=== PATIENT | female | born 1970 | race Caucasian/White ===

== ENCOUNTER 2016-10-11 10:32 | Day surgery (SDC) | payer OTHER ==
--- NOTE | 2016-10-11 07:57 | History and Physical Report ---
DATE OF EVALUATION: 10/11/2016. CHIEF COMPLAINT AND HISTORY OF CHIEF COMPLAINT: This patient presents with a history of intractable lumbar radiculitis. Due to the failure of all therapies , a spinal cord stimulator trial was conducted on 09/05/2016 with up to greater than 75% pain control. Due to the failure of all other therapies and the success of the trial she presents for implantation of a permanent system. PAST MEDICAL HISTORY: Asthmatic bronchitis. REVIEW OF SYSTEMS: The patient seems appropriate and in no acute distress. The remainder of the systems review shows breathing difficulties, headaches, anemia, reflux disease, degenerative arthritis, depression, difficulty sleeping. SOCIAL HISTORY: Caffeine. FAMILY HISTORY: Cancer. PAST SURGICAL HISTORY: section, gallbladder surgery, gastric bypass, uterine ablation, hysterectomy. ALLERGIES: Anti-inflammatories. MEDICATIONS ON ADMISSION: To be provided. PHYSICAL EXAMINATION: General: Height is 5 feet. Weight is 110 pounds. Vital Signs: Unavailable. HEENT: Within normal limits. Lungs: Clear. Heart: Regular rate and rhythm. Abdomen: Nontender. Musculoskeletal: Examination of the musculoskeletal system shows diffuse tenderness throughout the lumbar spine. Range of motion produces pain into the hip and moving into the left leg. Ambulation: No assistive device utilized. Neurologic: Cranial nerves are intact. IMPRESSIONS: LUMBAR RADICULITIS, ICD10 CODE M54.16 AND M54.17. PLANS: This patient is here for implantation of a permanent spinal cord stimulator. The procedure will be considered outpatient, although an overnight stay will be evaluated. All of the potential risks, side effects, and complications have been reviewed including the possibility of nerve root injury , paralysis, and failed trial. A book and CD-ROM from the adjutant general explaining the procedure, its indications, contraindications, all of the potential side effects and complications had been provided reviewed. The patient consents, understands, and wants to move forward. Akhil Saldivar D.O. Date Time JOB NUMBER: [id number] cc: Ruby Mccollum
[~2016-10-11 10:32] MED LIST: ACETAMINOPHEN 1000MG/100 ML PREMIX IV ONE; CEFAZOLIN 2 Gram 50 ML IVPB ONE; FAMOTIDINE 20MG TABLET PO ONE; MECLIZINE 25 MG TABLET PO ONE; METOCLOPRAMIDE 10 MG TABLET PO ONE
[2016-10-11] MEDS ORDERED: MIDAZOLAM HCL 2MG/2ML VIAL IV ONE (14:30)
[2016-10-11] MEDS ORDERED: LIDOCAINE 2% MDV (20MG/ML) 20ML VIAL IV ONE (14:30)
[2016-10-11] MEDS ORDERED: *PACU ONLY* KETAMINE HCL 10 MG/ML (20ML) VIAL IV ONE (14:30)
[2016-10-11] MEDS ORDERED: DEXMEDETOMIDINE HCL 200 MCG/2 ML VIAL IV ONE (14:30)
[2016-10-11] MEDS ORDERED: DEXAMETHASONE 4 MG/ML 1ML VIAL IVP ONE (14:30)
[2016-10-11] MEDS ORDERED: FENTANYL PF 100MCG/2ML VIAL IV ONE (14:30)
[2016-10-11] MEDS ORDERED: PROPOFOL 10 MG/ML VIAL IV ONE (14:30)
[2016-10-11] MEDS ORDERED: DIPHENHYDRAMINE HCL 25 MG CAPSULE PO PRN ×2 (14:46)
[2016-10-11] MEDS ORDERED: HYDROCODONE/APAP 7.5/325MG TABLET PO PRN (14:46)
[2016-10-11] MEDS ORDERED: METOCLOPRAMIDE 10 MG TABLET PO PRN (14:46)
[2016-10-11] MEDS ORDERED: SENNOSIDES/DOCUSATE SODIUM UD CAPSULE PO PRN ×2 (14:46)
[2016-10-11] MEDS ORDERED: TEMAZEPAM 15 MG CAPSULE PO PRN ×2 (14:46)
[2016-10-11] MEDS ORDERED: OXYCODONE/APAP 10MG-325MG TABLET PO PRN ×2 (14:46)
[2016-10-11] MEDS ORDERED: HYDROMORPHONE HCL 1 MG/ML CPJ IM PRN (14:46)
[2016-10-11] MEDS ORDERED: AL HYDROX/MAG HYDROX 30ML UD PO PRN (14:46)
[2016-10-11] MEDS ORDERED: METOCLOPRAMIDE HCL 10 MG/2 ML VIAL IVP PRN (14:46)
[2016-10-11] MEDS ORDERED: DIPHENHYDRAMINE HCL IV 50 MG/ML VIAL IVP PRN ×2 (14:46)
[2016-10-11] MEDS ORDERED: ACETAMINOPHEN 325 MG TAB PO PRN ×2 (14:46)
--- NOTE | 2016-10-11 15:42 | Operative Note ---
PAIN SERVICE OPERATIVE REPORT DATE OF PROCEDURE: . PREOPERATIVE DIAGNOSIS: LUMBAR RADICULITIS, ICD10 CODE M54.16 AND M54.17. PROCEDURES: 1. Fluoroscopically guided epidural access, T12-L1. Placement of spinal cord stimulator Lead 1, [employer] Infinion 16 with 16 electrodes, positioned left T7. 2. Fluoroscopically guided epidural access, T11-12, dural puncture. 3. Fluoroscopically guided epidural access T10-11. Placement of spinal cord stimulator lead 2, a [employer] Infinion 16 with 16 electrodes positioned right T7. 3. Complex programming of Lead 1 over 20 minutes followed by complex programming of Lead 2 over 20 minutes. 4. Incision, subcutaneous dissection, and anchoring of Lead 1 and Lead 2 to supraspinous fascia using a [employer] anchoring device and nonabsorbable suture. 5. Incision, subcutaneous dissection, and creation of subcutaneous pouch at the right posterior gluteal margin for placement of generator identified as a [employer] Programmable Rechargeable. 6. Tunneling between pouches and placement of external ports for Lead 1 and Lead 2 into generator pouch, each lead interfaced to bifurcate extension. Each bifurcate extension interfaced to the generator. 7. Placement of generator pouch, securing to the posterior fascia with nonabsorbable suture. Leads into pouch. 8. Closure of incisions with Vicryl to the fascia running subcuticular Vicryl for the skin. Dermabond Closure placed. 9. Epidural blood patch at L1-2, 18-gauge Tuohy with loss of resistance, 20 mL of autologous blood drawn with sterile technique, left antecubital. 10. Complex recovery room programming of the internal generator, home use, two stimulators, 20 minutes. SURGEON: Akhil Saldivar D.O. ANESTHESIA: Local sedation. ANESTHESIA PROVIDER: Alonso Tafoya CRNA. INDICATIONS: This patient presents with a history of intractable lumbar radiculitis. Due to the failure of other therapies and the success of a stimulator trial resulting in greater than 75% pain control, she is here for permanent implantation. DESCRIPTION OF PROCEDURE: Intravenous line, vital sign monitoring, intravenous sedation. Prepped and draped with sterile technique with the patient positioned on the table prone. Under imaging, the epidural interspace at T12- L1 and 11-12 was marked and infiltrated. Two separate curved-access Epimed needles with loss of resistance. At 12-1, spinal cord stimulator Lead 1, a [employer] Infinion 16 with 16 electrodes, was positioned left of midline at T7. The epidural access at T11-12, because of significant patient motion and movement, resulted in a dural puncture. The needle was removed. Epidural access at T10-11 was accomplished with a curved access needle with loss of resistance. Spinal cord stimulator Lead 2, a [employer] Infinion 16 with 16 electrodes, was positioned right of the midline at T7. Complex programming of Lead 1 over 20 minutes. Complex programming of Lead 2 over 20 minutes. This resulted in patterns of stimulation across all of the back and into the legs. The patient was questioned, and she indicated that we had all of the areas of pain. She was given the option to implant, remove, or continue to program. She opted to implant. Questions were repeated with the same response. The skin above and below the needles was infiltrated. An incision was made with subcutaneous dissection conducted to the supraspinous fascia. The needles were removed and then each lead was anchored to the supraspinous fascia with a [employer] locking anchor. At the right posterosuperior gluteal margin gluteal margin, a site picked by the patient for the generator, the skin was infiltrated, an incision was made and subcutaneous dissection was conducted to form a pouch of suitable size and depth for the generator. A tunneling tool was used to carry the leads into the generator pouch, and then each lead was interfaced to bifurcate extension. Each bifurcate extension was then interfaced to the generator. Antibiotic irrigation. Bovie for hemostasis. The generator was placed into the pouch and secured to the posterior fascia using nonabsorbable suture. The leads were placed into the pouch, and then both incisions were closed with Vicryl to the fascia and running subcuticular and Vicryl for skin. A Dermabond Closure System was used. The epidural interspace at L1-2 was marked. Using an 18-gauge Tuohy needle with loss of resistance the epidural space was accessed. Simultaneously, 20 mL of autologous blood was drawn with sterile technique, left antecubital. Using a sterile technique, the blood was placed onto the field and then an epidural blood patch was performed at this level with this blood. The needle was removed and the area was cleaned. The dressing was reinforced. She was transported to the recovery stable, flat with a pillow under the head and knees. She will stay flat for four hours and will be slowly elevated for one. When stable she will be discharged. More than likely she will be kept overnight for observation and will be discharged in the morning. DISCHARGE INSTRUCTIONS: 1. The sites will remain clean and dry. No showering or bathing in any way that would disrupt the dressings. If it happens, contact the clinic. 2. Standard medications may be resumed including an antibiotic with Levaquin 500 mg once a day for 14 days. 3. During the next five to seven days the patient will evaluate any occurrence of headache. If it happens, contact the clinic. 4. All other instructions were provided, numbers to contact, and problems given. 5. She will be seen in the office to evaluate the incisional sites. She should keep her activities low for the next five to seven days limiting bend, lift, push, and pull. Akhil Saldivar D.O. Date Time JOB NUMBER: [id number] cc: Ruby Mccollum
[2016-10-11] MEDS ORDERED: HYDROMORPHONE HCL 2 MG/ML VIAL IV ONE (16:12)
[2016-10-11] MEDS ORDERED: LIDOCAINE 1% W/EPI 1:200,000 MPF 30ML SQ ONE (16:12)
[2016-10-11] MEDS ORDERED: CEFAZOLIN 1G VIAL IM ONE (16:12)
[2016-10-11] MEDS ORDERED: BUPIVACAINE 0.5% W/EPI MPF 30 ML VIAL IVP ONE (16:12)
[2016-10-11] MEDS: HYDROCODONE/APAP 7.5/325MG TABLET PO PRN ×2 (16:57→21:07)
[2016-10-11] MEDS: CEFAZOLIN 2 Gram 50 ML IVPB SCH ×2 (18:23→19:38)
[2016-10-11] MEDS ORDERED: TOPIRAMATE 100MG TABLET PO SCH (22:00)
[2016-10-11] MEDS ORDERED: 0.9 % SODIUM CHLORIDE 10ML SYR IVP SCH (22:00)
[2016-10-11] MEDS: HYDROMORPHONE HCL 2 MG/ML VIAL IM PRN (22:59)
[2016-10-12] MEDS: HYDROCODONE/APAP 7.5/325MG TABLET PO PRN ×2 (01:24→06:55)
[2016-10-12] MEDS: CEFAZOLIN 2 Gram 50 ML IVPB SCH (03:19)
[2016-10-12] MEDS: HYDROMORPHONE HCL 2 MG/ML VIAL IM PRN (03:29)
[2016-10-12] MEDS ORDERED: DULOXETINE HCL 30 MG CAPSULE.DR PO SCH (10:00)
--- NOTE | 2016-10-13 08:52 | RADIOLOGY REPORT ---
EXAM: LOWER THORACIC AND LUMBAR SPINE, SINGLE VIEW HISTORY: LINE PLACEMENT. TECHNIQUE: A single AP view of the lower thoracic spine and lumbar spine were obtained. Comparison: Intraoperative images from the same date. FINDINGS: There are two stimulating wires, one of the proximal tips projects over the superior T8 end plate and the other projects over the inferior T7 end plate. IMPRESSION: STIMULATING WIRES IN PLACE, ABOVE. JOB NUMBER: [id number] MTDD
== END 2016-10-12 09:25 | disposition home or self-care (01) ==
LOC: SUR 10:32 → MEDSURG 14:43 → SUR 10-12 09:25
PROVIDERS: ATTEND Pain Medicine Interventional Pain Medicine
DX: M54.16 Radiculopathy, lumbar region (principal); M54.17 Radiculopathy, lumbosacral region
CPT/HCPCS: 95972; 72020; 63685; 63650 ×2; 01936; J3010; J1170 ×3; J0690 ×2; J3490 ×2